=== PATIENT | male | born 1975 | race Caucasian/White ===

== ENCOUNTER 2019-05-01 15:46 | Outpatient (CLI) | payer OTHER, SELFPAY ==
--- NOTE | ~2019-05-01 | XR_ITS ---
XR finger 3rd LT min 2V DATE: 05/01/2019 16:10 INDICATION: Left third finger ganglion cyst TECHNIQUE: 4 views COMPARISON: None FINDINGS: There is focal soft tissue swelling of the mid to distal third digit medially. No subcutane ous emphysema or soft tissue calcification is detected. No fracture, dislocation, periosteal reaction or bone destruction. Anterior phalangeal joint spaces a re preserved, as is the third metacarpophalangeal joint. IMPRESSION: Focal soft tissue swelling of the medial mid to distal third digit; no significant bony a bnormality Reviewed, dictated and finalized at location B. STANT TO THE DEAN IMPRESSION: Focal soft tissue swelling of the medial mid to distal third digit; no significant bony abnormality
== END 2019-05-01 15:47 | disposition home or self-care (01) ==
LOC: CHSIMG 15:48
PROVIDERS: PCP Family Medicine; Visit Provider Family Medicine
DX: M67.442 Ganglion, left hand (principal)
CPT/HCPCS: 73140

== ENCOUNTER 2019-05-05 06:59 | Outpatient (CLI) | payer OTHER, SELFPAY ==
--- NOTE | ~2019-05-05 | MR_ITS ---
EXAMINATION: MR hand LT wo con DATE: 05/05/2019 08:46 INDICATION: Little middle finger neoplasm. TECHNIQUE: Magnetic resonance imaging (MRI) of the left hand was performed without intravenous contra st and at the third digit and excluding the carpus, thumb and portions of the mid to distal fifth dig it. Sequences included coronal T1-weighted FSE, axial, sagittal and coronal PD-weighted FSE and axial , sagittal and coronal PD-weighted FS FSE. COMPARISON: Left third digit radiograph dated 05/01/2019 FINDINGS: In the subcutaneous soft tissues along the ulnar side of the third middle phalanx there is a 14 x 10 x 6 mm relatively homogeneous PD hyperintense, T1 isointense lesion. This exerts mass effect upon the neurovascular bundle which is displaced palmarly. Bones are normal alignment with normal marrow sign al throughout. No reactive edema, fracture or pathologic marrow replacing process. No evident periost itis. The flexor and extensor tendons are normal with no evident tenosynovitis. The collateral ligame nt complex at the interphalangeal and metacarpophalangeal joints are normal. IMPRESSION: 1. 14 x 10 x 6 mm PD hyperintensities lesion along the ulnar side of the third middle phalanx. This m ost likely represents a ganglion cyst although in the absence of intravenous contrast as solid neopla sm could not be excluded. If solid, the signal characteristics would be most consistent with a schwan noma or peripheral nerve sheath tumor. Could consider either ultrasound or postcontrast MRI to differ entiate solid from cystic. Reviewed, dictated and finalized at location A. NIZER IMPRESSION: 1. 14 x 10 x 6 mm PD hyperintensities lesion along the ulnar side of the third middle phalanx. This most likely represents a ganglion cyst although in the abs ence of intravenous contrast as solid neoplasm could not be excluded. If solid, the signal characteristics would be most consistent with a schwannoma or perip heral nerve sheath tumor. Could consider either ultrasound or postcontrast MRI to differentiate solid from cystic.
== END 2019-05-05 07:00 | disposition home or self-care (01) ==
LOC: CHSIMG 07:02
PROVIDERS: PCP Family Medicine
DX: D49.2 Neoplasm of unspecified behavior of bone, soft tissue, and skin (principal)
CPT/HCPCS: 73218

== ENCOUNTER 2019-08-03 11:30 | Outpatient (CLI) | payer OTHER, SELFPAY ==
[2019-08-03 11:49] LABS: Basophils Absolute Auto 0.02 K/mm3 (0.00-0.10); Basophils Percent Auto 0.2 % (0.0-1.0); Eosinophils Absolute Auto 0.08 K/mm3 (0.02-0.50); Eosinophils Percent Auto 0.9 % (1.0-6.0); Hematocrit 45.7 % (40.0-54.0); Hemoglobin 15.3 g/dL (14.0-18.0); Immature Granulocyte Absolute 0.03 K/mm3 (0.00-0.00); Immature Granulocyte Percent A 0.3 % (0.0-0.0); Lymphocytes Absolute Auto 1.72 K/mm3 (1.10-4.50); Lymphocytes Percent Auto 18.6 % (18.0-42.0); Mean Corpuscular HGB Conc 33.5 g/dL (32.0-36.0); Mean Corpuscular Hemoglobin 29.4 pg (27.0-31.0); Mean Corpuscular Volume 87.9 fL (78.0-102.0); Mean Platelet Volume 9.5 fl (8.7-11.0); Monocytes Absolute Auto 0.68 K/mm3 (0.10-0.90); Monocytes Percent Auto 7.3 % (2.0-11.0); Neutrophils Absolute Auto 6.7 K/mm3 (1.7-7.2); Neutrophils Percent Auto 72.7 % (50.0-70.0); Platelet Count Result 344 K/mm3 (150-420); Red Cell Distribution Width 13.9 % (11.6-14.4); White Blood Count 9.3 K/mm3 (4.8-10.8)
[2019-08-03 11:51] LABS: Add Urine Microscopic? YES; Appearance Urine Clear (Clear); Bilirubin Urine Negative (Negative); Blood Urine 1+ (Negative); Color Urine Yellow (Yellow); Glucose Urine UA Negative (Negative); Ketones Urine Negative (Negative); Leukocyte Esterase Ur Negative (Negative); Nitrate Urine Negative (Negative); Protein Urine Negative (Negative); Specific Grav Ur 1.025 (1.010-1.020); Urobilinogen Urine 0.2 mg/dL (0.2-1.0)
[2019-08-03 11:59] LABS: Bacteria Urine 1+ /hpf; Squamous Epithelial Cell Urine None seen /hpf (Few); WBC Urine 0-3 /hpf (0-3)
[2019-08-03 12:03] LABS: Alanine Aminotransferase 39 U/L (16-63); Albumin Level 3.7 g/dL (3.4-5.0); Alkaline Phosphatase 81 U/L (46-116); Anion Gap 12.5 mmol/L (7-16); Aspartate Amino Transferase 17 U/L (15-37); Bilirubin,Total 0.3 mg/dL (0.00-1.00); Blood Urea Nitrogen 15 mg/dL (7-18); Calcium 9.3 mg/dL (8.5-10.1); Carbon Dioxide 30 mmol/L (21-32); Chloride 103 mmol/L (98-108); Estimated Glomerular Filt Rate > 60; Glucose 90 mg/dL (70-99); Osmolality Calculated 292 mOsm/kg (285-295); Potassium 4.5 mmol/L (3.5-5.1); Sodium 141 mmol/L (136-145); Total Protein 7.6 g/dL (6.4-8.2)
== END 2019-08-03 11:31 | disposition home or self-care (01) ==
PROVIDERS: PCP Family Medicine
DX: R53.83 Other fatigue (principal)
CPT/HCPCS: 36415; 80053; 81001; 85025

== ENCOUNTER 2019-11-02 11:13 | Outpatient (CLI) | payer OTHER, SELFPAY ==
[2019-11-02 11:24] LABS: Basophils Absolute Auto 0.02 K/mm3 (0.00-0.10); Basophils Percent Auto 0.3 % (0.0-1.0); Eosinophils Absolute Auto 0.13 K/mm3 (0.02-0.50); Eosinophils Percent Auto 1.7 % (1.0-6.0); Hematocrit 46.7 % (40.0-54.0); Hemoglobin 15.8 g/dL (14.0-18.0); Immature Granulocyte Absolute 0.03 K/mm3 (0.00-0.00); Immature Granulocyte Percent A 0.4 % (0.0-0.0); Lymphocytes Absolute Auto 1.51 K/mm3 (1.10-4.50); Lymphocytes Percent Auto 19.7 % (18.0-42.0); Mean Corpuscular HGB Conc 33.8 g/dL (32.0-36.0); Mean Corpuscular Hemoglobin 29.8 pg (27.0-31.0); Mean Corpuscular Volume 87.9 fL (78.0-102.0); Mean Platelet Volume 9.6 fl (8.7-11.0); Monocytes Absolute Auto 0.61 K/mm3 (0.10-0.90); Neutrophils Absolute Auto 5.4 K/mm3 (1.7-7.2); Neutrophils Percent Auto 69.9 % (50.0-70.0); Platelet Count Result 326 K/mm3 (150-420); Red Blood Count 5.31 M/mm3 (4.70-6.10); Red Cell Distribution Width 13.2 % (11.6-14.4); White Blood Count 7.7 K/mm3 (4.8-10.8)
== END 2019-11-02 11:14 | disposition home or self-care (01) ==
PROVIDERS: PCP Family Medicine
DX: K62.5 Hemorrhage of anus and rectum (principal)
CPT/HCPCS: 36415; 85025

== ENCOUNTER 2020-08-03 16:09 | Emergency (ER) | payer SELFPAY ==
--- NOTE | ~2020-08-03 | XR_ITS ---
EXAMINATION: XR ankle LT min 3V DATE: 08/03/2020 16:55 INDICATION: Left ankle injury and pain. TECHNIQUE: 4 views of left ankle were obtained. COMPARISON: None. FINDINGS: Bone alignment is normal. No acute fracture. There is mild ankle joint osteoarthritis. Ther e is heterotopic ossification distal to medial malleolus, likely from old injury. There is an entheso phyte at posterior aspect of calcaneal tuberosity. Ankle soft tissue swelling is noted. IMPRESSION: 1. No acute fracture. 2. Mild ankle joint osteoarthritis. Reviewed, dictated and finalized at location A.
[2020-08-03 16:17] VITALS: BP 142/99; PULSE 98; RESP 20; TEMP 36.4; O2SAT 98
[2020-08-03] MEDS: KETOROLAC (*BKC) 60 MG/2 ML VIAL IM (16:56)
--- NOTE | 2020-08-03 17:01 | ED.LOWEXIN ---
HPI - Extremity Injury (Lower) General Source: patient and family Mode of arrival: ambulatory Limitations: no limitations History of Present Illness HPI Narrative: Will comes in after stepping in a hole last evening about 8:30 pm. He had sharp, moderately severe pain in his left ankle with this, ongoing, and has continued to have pain in his ankle which has gotten more severe with time and swelling. Pain is mostly in left lateral ankle, made worse with movement, less severe with rest. He has swelling now on both sides of his ankle that is moderately severe. Ankle appears quite bruised on both sides. MD complaint: ankle injury Onset (ago): hour(s) (since last pm) Type of Injury: blunt Place: home Severity: severe Relieving factors: nothing and other (nsaid has not helped much at home) Exacerbating factors: weight bearing and movement Context: other (stepped in hole) Associated symptoms: able to partially bear weight and ambulatory Treatments prior to arrival: cold therapy and NSAIDS Related Data Home Medications Medication Instructions Recorded Confirmed clopidogrel [Plavix] 75 mg PO DAILY 03/08/19 08/03/20 lisinopril 20 mg PO DAILY 03/08/19 08/03/20 zolpidem 10 mg PO HS PRN 03/08/19 08/03/20 Allergies Allergy/AdvReac Type Severity Reaction Status Date / Time codeine Allergy Unknown Verified 03/08/19 21:29 Review of Systems Constitutional: Constitutional: Reports no additional constitutional complaints Eyes: Eyes: Reports no additional eye complaints ENT: Reports system reviewed and no additional complaints, except as documented Cardiovascular: Cardiovascular: Reports no additional cardiovascular complaints Respiratory: Respiratory: Reports no additional respiratory complaints Gastrointestinal: Gastrointestinal: Reports no additional gastrointestinal complaints Genitourinary: Genitourinary: Reports no additional male genitourinary complaints Musculoskeletal: Musculoskeletal: Reports no additional musculoskeletal complaints Integumentary/Breasts: Skin/Breast: Reports system reviewed and no additional complaints, except as docu Neurologic: Reports system reviewed and no additional complaints, except as documented Psychiatric: Psychiatric: Reports no additional psychiatric complaints Endocrine: Endocrine: Reports no additional endocrine complaints Hematologic/Lymphatic: Hematologic/Lymphatic: Reports no additional hematologic/lymphatic complaints Allergic/Immunologic: Allergic/Immunologic: Reports no additional allergic/immunologic complaints [facility] Past Medical History Medical History (Updated 08/03/20 @ 23:06 by Dani Trivedi MD) CAD (coronary artery disease) Hypertension Surgical History Surgical History H/O hernia repair History of appendectomy History of carpal tunnel surgery Stented coronary artery Social History Social History Smoking status: Current every day smoker Tobacco type: cigarettes Alcohol intake: never Substance use: current Living arrangements: with family Gender identity (if verbalized by the patient): Male Exam Const: General: no acute distress Orientation/consciousness: patient oriented x3 HENMT: Head: normal to inspection Ears: external ears normal General nose exam: Normal external nose present Mouth: Yes Normal oral and palatal mucosa present Eyes: Conjunctivae: conjunctivae normal Neck: Neck: normal visual inspection Chest: Chest palpation & inspection: normal inspection of the chest Resp: Effort & Inspection: normal respiratory effort Auscultation: clear to auscultation bilaterally Cardio: Rate: regular rate Rhythm: regular rhythm GI: GI Palp: Yes Soft to palpation Auscultation: normal bowel sounds Skin: General skin exam: normal color Neuro: General: patient oriented x3 and moves all extremities Extrem: Other: left ankle
[2020-08-03 17:08] LABS: Glucose Point of Care 83 (65-105)
[2020-08-03] MEDS: traMADol HCL (*CRX) 50 MG TABLET PO (17:14)
== END 2020-08-03 17:16 | disposition home or self-care (01) ==
PROVIDERS: Emergency Provider Emergency Medicine; PCP Family Medicine
DX: S93.402A Sprain of unspecified ligament of left ankle, initial encounter (principal)
CPT/HCPCS: 29515; 73610; 82948; 96372; 99283; A9270; J1885; L4350

== ENCOUNTER 2022-08-29 07:42 | Emergency (ER) | payer OTHER, SELFPAY ==
[2022-08-29] VITALS (45 sets, daily range): BP systolic 135–160; BP diastolic 80–112; PULSE 68–111; RESP 11–21; TEMP 36.4–37.1; O2SAT 91–98
--- NOTE | ~2022-08-29 | CT_ITS ---
EXAMINATION: CT brain wo con DATE: 08/29/2022 08:16 INDICATION: Left arm and face numbness. Headache TECHNIQUE: Computed tomography (CT) of the head was performed without intravenous contrast. The mA wa s adjusted according to patient size. Iterative reconstruction technique was employed. Exam dose: 68 1.00 mGy-cm total exam DLP. COMPARISON: None FINDINGS: No intracranial mass lesion or hemorrhage or cerebrovascular accident is detected. No midli ne shift or mass effect effect. Normal ventricular size. Normal he-white matter differentiation. No subdural or epidural hematoma. There is patchy soft tissue thickening the ethmoid air cells bilaterally. The paranasal sinuses and m astoid air cells are otherwise normally developed and aerated. No fracture or bone destruction of the cranial vault. IMPRESSION: No intracranial abnormality Dr. David telephoned the report to the emergency room physician in [place] on 08/2022 at 0822 hours. Reviewed, dictated and finalized at Location A. Reviewed, dictated and finalized at location A. IMPRESSION: No intracranial abnormality Dr. David telephoned the report to the emergency room physician in [place] on at 0822 hours.
--- NOTE | 2022-08-29 07:47 | ED.GENADULT ---
HPI - General Adult General Chief complaint: Dizziness Stated complaint: left sided numbness Time Seen by Provider: 08/29/22 07:47 Source: patient and family Mode of arrival: ambulatory Limitations: no limitations History of Present Illness HPI narrative: 47-year-old white male this morning while watching TV at 7:15 a.m. suddenly had a left facial tingling numbness tingling of his this tongue left arm with left arm weakness and tingling around his left chest. Denies any problems walking but his said he staggered into her room and said he was having a stroke he thought. Denied any other problems with his vision slurred speech or problems with numbness or weakness of his legs or right side of his body. patient's stated that he sneezed 2 nights ago and had sudden frontal headache took some Tylenol and the headache has been severe yesterday and Tuesday night 2 nights ago he said he drank a pt and half of whiskey the said he he drank half a pt yesterday to try get rid of the headache. Has headaches just mild frontal. Tylenol for this today denies any problems eating or drinking voiding or stooling rash or itching bleeding or bruising swelling lumps or bumps lightheadedness. said he was dizzy walking into the ER today. His mild headache no pain anywhere else no cough shortness of breath runny nose sore throat. Past medical history he had a HI with 2 stents 3 years ago is on short-term disability since has posttraumatic stress disorder has been off his clopidogrel baby aspirin lisinopril but continues to take Focalin and trazodone from his psychiatrist. 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 Related Data Home Medications Medication Instructions Recorded Confirmed dexmethylphenidate 10 mg tablet 10 mg PO BID 08/29/22 08/29/22 trazodone 100 mg tablet 100 mg PO QHS 08/29/22 08/29/22 Allergies Allergy/AdvReac Type Severity Reaction Status Date / Time codeine Allergy Unknown Verified 08/29/22 08:03 Review of Systems Review of Systems: All systems reviewed & are unremarkable except as noted in HPI and below PMFSH Past Medical History Medical History CAD (coronary artery disease) Hypertension Surgical History Surgical History H/O hernia repair History of appendectomy History of carpal tunnel surgery Stented coronary artery Social History Social History Smoking status: Current every day smoker Tobacco type: cigarettes Alcohol intake: never Substance use: current Living arrangements: with family Gender identity (if verbalized by the patient): Male Exam Narrative: Patient is a white male? and appears in no apparent distress. ? Head is normocephalic atraumatic. ? Eyes:? Pupils are equal round react light extraocular movements are intact. Peripheral vision is normal ? Ears:? TMs are normal .? Ear canals are normal.? Hearing is grossly normal. ? Nose:? Normal. ? Throat:? Oropharynx is clear with moist mucous membranes.? Posterior pharynx is clear with no exudates. speech is normal ? Neck:? Supple no lymphadenopathy.? Full range of motion? without tenderness. no meningismus. Supple ??Lungs:? Clear to auscultation without wheezes rales or rhonchi . Thorax:? Chest wall nontender without crepitation. ? Heart:? Regular rate and rhythm without murmurs gallops or rubs. ? Back:? Nontender. ? Abdomen:? Positive bowel sounds, soft, nontender, no hepatosplenomegaly or masses, no CVA tenderness, no abdominal bruits, no guarding or rebound. ? Extremities:? Full range of motion nontender .?? No cyanosis clubbing or edema. ?Neuro:? alert and oriented x4.? Motor: Left arm mild weakness. Left arm drift.? Sensory: Left facial numbness and left upper extremity numbness. Speech is normal.? Affect normal.? Cranial nerves
--- NOTE | 2022-08-29 07:50 | ECG_ITS ---
Measurements Intervals [place] Rate: 90 P: 21 TX: 134 QRS: 30 QRSD: 89 T: -15 QT: 355 QTc: 436 Interpretive Statements SINUS RHYTHM NONSPECIFIC T-WAVE ABNORMALITY ABNORMAL ECG NO PREVIOUS ECG AVAILABLE FOR COMPARISON Electronically Signed On 08-30-2022 9:28:43 CDT by Abrahan Schulz M.D.
[2022-08-29 07:51] LABS: Glucose Point of Care 150 mg/dl (65-105)
[2022-08-29 08:23] LABS: Hematocrit 47.6 % (40.0-54.0); Hemoglobin 16.6 g/dL (14.0-18.0); Mean Corpuscular HGB Conc 34.9 g/dL (32.0-36.0); Mean Corpuscular Hemoglobin 30.1 pg (27.0-31.0); Mean Corpuscular Volume 86.2 fL (78.0-102.0); Mean Platelet Volume 9.6 fl (8.7-11.0); Platelet Count Result 324 K/mm3 (150-420); Red Blood Count 5.52 M/mm3 (4.70-6.10); Red Cell Distribution Width 13.2 % (11.6-14.4); White Blood Count 14.1 K/mm3 (4.8-10.8)
[2022-08-29 08:38] LABS: INR 0.9; Partial Thromboplastin Time 24.6 SEC (23.90-30.70); Prothrombin Time 10.3 Seconds (9.50-12.10)
[2022-08-29 08:39] LABS: Alanine Aminotransferase 56 U/L (16-63); Albumin Level 3.7 g/dL (3.4-5.0); Alkaline Phosphatase 88 U/L (46-116); Anion Gap 11 mmol/L (8-16); Aspartate Amino Transferase 27 U/L (15-37); Bilirubin,Total 0.4 mg/dL (0.00-1.00); Blood Urea Nitrogen 14 mg/dL (7-18); Calcium 8.6 mg/dL (8.5-10.1); Carbon Dioxide 25 mmol/L (21-32); Chloride 99 mmol/L (98-108); Estimated CRCL calculation 90 ml/min; Estimated Glomerular Filt Rate > 60; Glucose 108 mg/dL (70-99); Magnesium 2.1 mg/dL (1.8-2.4); Osmolality Calculated 281 mOsm/kg (285-295); Potassium 3.5 mmol/L (3.5-5.1); Sodium 135 mmol/L (136-145); Total Protein 7.5 g/dL (6.4-8.2); Troponin I 9.7 ng/L (0.00-60.4)
--- NOTE | 2022-08-29 08:45 | PC.NURSE ---
0743 - pt arrived 0747 - bedside glucose 150 0755 - erp at bedside 0800 - stat stroke paged overhead 0805 - pt taken to ct scanner 0820 - erp speaking with radiology 0825 - erp speaking with neuro at [facility]
[2022-08-29 10:43] LABS: Amphetamine Screen Urine Negative (Negative); Barbiturate Screen Urine Negative (Negative); Benzodiazepines Screen Urine Negative (Negative); Cannabinoid Screen Urine Negative (Negative); Cocaine Screen Urine Negative (Negative); Methadone Screen Urine Negative (Negative); Opiate Screen Urine Negative (Negative); Phencyclidine Screen Urine Negative (Negative)
== END 2022-08-29 18:34 | disposition short-term general hospital (02) ==
PROVIDERS: Emergency Provider Emergency Medicine; PCP Family Medicine
DX: G45.9 Transient cerebral ischemic attack, unspecified (principal); I25.10 Atherosclerotic heart disease of native coronary artery without angina pectoris; I10 Essential (primary) hypertension; F17.210 Nicotine dependence, cigarettes, uncomplicated; Z79.899 Other long term (current) drug therapy
CPT/HCPCS: 36415; 70450; 80053; 80307; 82948; 83735; 84484; 85027; 85610; 85730; 93005; 99285

== ENCOUNTER 2023-04-02 00:12 | Emergency (ER) | payer SELFPAY ==
[2023-04-02] VITALS (39 sets, daily range): BP systolic 146–204; BP diastolic 104–139; PULSE 81–109; RESP 12–20; TEMP 37.1; O2SAT 92–98
--- NOTE | ~2023-04-02 | CT_ITS ---
EXAMINATION: CT brain wo con DATE: 04/02/2023 00:44 INDICATION: Left arm paresis. Headache. History of stroke. TECHNIQUE: Computed tomography (CT) of the head was performed without intravenous contrast. The mA wa s adjusted according to patient size. Iterative reconstruction technique was employed. Exam dose: 60 5.33 mGy-cm total exam DLP. COMPARISON: August 29, 2022 CT brain FINDINGS: No intracranial mass lesion or hemorrhage or cerebrovascular accident, midline shift or mas s effect is evident. Normal ventricular size. Normal he-white matter differentiation. No subdural o r epidural hematoma. The orbits are unremarkable. There is mild bilateral posterior ethmoid soft tissue opacification, right greater than left. The par anasal sinuses and mastoid air cells are otherwise normally developed and aerated. No fracture or bone destruction of the cranial vault. IMPRESSION: No significant intracranial abnormality Reviewed, dictated and finalized at Location A. Reviewed, dictated and finalized at location A. EAR PLANT INSTRUMENT TECHNICIAN
--- NOTE | ~2023-04-02 | XR_ITS ---
XR chest 2V DATE: 04/02/2023 00:43 INDICATION: Chest pain TECHNIQUE: PA and lateral views COMPARISON: None FINDINGS: Normal heart size. No hilar or mediastinal enlargement. No pulmonary infiltrate or consolid ation, pleural effusion or pulmonary vascular congestion or pneumothorax is detected. Surgical clips, upper abdomen, likely due to cholecystectomy. Included skeletal structures are unrema rkable. IMPRESSION: No active cardiopulmonary disease Reviewed, dictated and finalized at location A. CLEANER OPERATOR
--- NOTE | 2023-04-02 00:13 | ED.GENADULT ---
HPI - General Adult General Chief complaint: Chest Pain Stated complaint: high blood pressure Time Seen by Provider: 04/02/23 00:13 Source: patient Mode of arrival: ambulatory Limitations: no limitations History of Present Illness HPI narrative: patient is a 47-year-old male with hypertension and noncompliance with medication. He had a stroke in August of 2022. He has no residual side effects. They found 3 strokes in his brain on MRI. Chest pain resolved at this time. He also had some uneasy feeling and some scalp burning and some left leg burning. He checked his blood pressure in the values were over 200s on the top and over 100s at the bottom. On evaluation here he was 204/128. patient stopped taking all of his medications due to finances. Onset (ago): hour(s) ( 2-3 hours) Location: head, chest and lower extremity Radiation: non-radiation Severity: mild Severity scale (1-10): 3 Quality: burning Pain Consistency: intermittent Relieving factors: none Exacerbating factors: none Associated symptoms: chest pain and headaches Treatments prior to arrival: none Related Data Home Medications Medication Instructions Recorded Confirmed dexmethylphenidate 10 mg tablet 10 mg PO BID 08/29/22 04/02/23 trazodone 100 mg tablet 100 mg PO QHS 08/29/22 04/02/23 Adult Aspirin 324 mg PO DAILY 04/02/23 04/02/23 atorvastatin 40 mg tablet 40 mg PO DAILY 04/02/23 04/02/23 lisinopril 10 mg tablet 10 mg PO DAILY 04/02/23 04/02/23 Allergies Allergy/AdvReac Type Severity Reaction Status Date / Time codeine Allergy Mild Itching Verified 04/02/23 00:17 [facility] Past Medical History Medical History CAD (coronary artery disease) Hypertension Surgical History Surgical History H/O hernia repair History of appendectomy History of carpal tunnel surgery Stented coronary artery Social History Social History Smoking status: Current every day smoker Tobacco type: cigarettes Alcohol intake: never Substance use: current Living arrangements: with family Gender identity (if verbalized by the patient): Male Course Vital Signs Vital signs: Vital Signs Temperature 37.1 C 04/02/23 00:12 Pulse Rate 108 H 04/02/23 00:12 Respiratory Rate 12 04/02/23 00:12 Blood Pressure 204/128 H 04/02/23 00:12 Pulse Oximetry 97 04/02/23 00:12 Oxygen Delivery Room Air 04/02/23 00:12 Temperature 37.1 C 04/02/23 00:12 Pulse Rate 86 04/02/23 01:46 Respiratory Rate 14 04/02/23 01:46 Blood Pressure 164/125 H 04/02/23 02:27 Pulse Oximetry 98 04/02/23 01:46 Oxygen Delivery Room Air 04/02/23 00:12 Medical Decision Making MDM Narrative Medical decision making narrative: Patient is a 47-year-old male with hypertensive urgency presenting to the emergency room. He was given labetalol on entry to the hospital and he started to feel better. He slowly feeling better is the pressure is decreasing slowly. CT scan of the brain was negative for acute changes. EKG was normal sinus rhythm. We will do a cardiac/ neuro workup at this time. As long as all of his symptoms are resolved after blood pressure is decreased, he will be allowed to go home this evening. He will need to be restarted on his blood pressure medication. Hematuria follow-up with the primary doctor. Vital Signs Vital Signs: Vital Signs Temperature 37.1 C 04/02/23 00:12 Pulse Rate 108 H 04/02/23 00:12 Respiratory Rate 12 04/02/23 00:12 Blood Pressure 204/128 H 04/02/23 00:12 Pulse Oximetry 97 04/02/23 00:12 Oxygen Delivery Room Air 04/02/23 00:12 Temperature 37.1 C 04/02/23 00:12 Pulse Rate 86 04/02/23 01:46 Respiratory Rate 14 04/02/23 01:46 Blood Pressure 164/125 H 04/02/23 02:27 Pulse Oximetry 98 04/02/23 01:46 Oxygen Delivery Room Air
--- NOTE | 2023-04-02 00:15 | ECG_ITS ---
Measurements Intervals [place] Rate: 91 P: 16 MS: 146 QRS: 27 QRSD: 89 T: -12 QT: 340 QTc: 420 Interpretive Statements SINUS RHYTHM MINIMAL Q WAVES- INFERIOR LEADS T WAVE ABNORMALITY IN INFERIOR LEADS- CONSIDER ISCHEMIA ABNORMAL ECG COMPARED TO ECG 08/29/2022 07:57:05 T WAVE ABNORMALITY NOW PRESENT Electronically Signed On 04-02-2023 8:52:40 PERMASTONE APPLICATOR by Wale Rodriguez D.O.
[2023-04-02] MEDS: LABETALOL HCL INJ 100 MG/20 ML VIAL 10 MG IV PUSH ×2 (00:25→00:53)
[2023-04-02 00:35] LABS: Basophils Absolute Auto 0.04 K/mm3 (0.00-0.10); Basophils Percent Auto 0.4 % (0.0-1.0); Eosinophils Absolute Auto 0.09 K/mm3 (0.02-0.50); Eosinophils Percent Auto 0.9 % (1.0-6.0); Hematocrit 48.4 % (40.0-54.0); Hemoglobin 16.6 g/dL (14.0-18.0); Lymphocytes Absolute Auto 2.31 K/mm3 (1.10-4.50); Lymphocytes Percent Auto 23.9 % (18.0-42.0); Mean Corpuscular HGB Conc 34.3 g/dL (32.0-36.0); Mean Corpuscular Volume 87.4 fL (78.0-102.0); Mean Platelet Volume 9.6 fl (8.7-11.0); Monocytes Percent Auto 10.4 % (2.0-11.0); Neutrophils Absolute Auto 6.1 K/mm3 (1.7-7.2); Neutrophils Percent Auto 63.4 % (50.0-70.0); Platelet Count Result 317 K/mm3 (150-420); Red Blood Count 5.54 M/mm3 (4.70-6.10); Red Cell Distribution Width 12.9 % (11.6-14.4); White Blood Count 9.7 K/mm3 (4.8-10.8)
[2023-04-02 00:43] LABS: D Dimer 0.19 mg/L (0.19-0.50); INR 0.9; Partial Thromboplastin Time 27.9 SEC (23.90-30.70); Prothrombin Time 10.3 Seconds (9.50-12.10)
[2023-04-02 00:45] LABS: Alanine Aminotransferase 205 U/L (16-63); Albumin Level 3.9 g/dL (3.4-5.0); Alkaline Phosphatase 97 U/L (46-116); Anion Gap 12 mmol/L (8-16); Aspartate Amino Transferase 73 U/L (15-37); Bilirubin,Total 0.4 mg/dL (0.00-1.00); Blood Urea Nitrogen 17 mg/dL (7-18); Calcium 9.2 mg/dL (8.5-10.1); Carbon Dioxide 26 mmol/L (21-32); Chloride 97 mmol/L (98-108); Estimated CRCL calculation 80 ml/min; Estimated Glomerular Filt Rate > 60; Glucose 106 mg/dL (70-99); Osmolality Calculated 281 mOsm/kg (285-295); Sodium 135 mmol/L (136-145); Total Protein 7.8 g/dL (6.4-8.2); Troponin I 20.6 ng/L (0.00-60.4)
[2023-04-02 01:33] LABS: Appearance Urine Clear (Clear); Bilirubin Urine Negative (Negative); Blood Urine 1+ (Negative); Color Urine Yellow (Yellow); Glucose Urine UA Negative (Negative); Ketones Urine Negative (Negative); Leukocyte Esterase Ur Negative LEU/UL (Negative); Nitrate Urine Negative (Negative); Protein Urine Negative (Negative); Specific Grav Ur >= 1.030 (1.010-1.020); Urobilinogen Urine 0.2 mg/dL (0.2-1.0)
[2023-04-02 01:39] LABS: Add Urine Microscopic? YES; Bacteria Urine Trace /hpf; Squamous Epithelial Cell Urine Rare /hpf (Few); WBC Urine 0-3 /hpf (0-3)
[2023-04-02 01:40] LABS: Mucus Urine Moderate /lpf
[2023-04-02] MEDS: amLODIPine BESYLATE 5 MG TABLET PO (02:07)
[2023-04-02] MEDS: LOSARTAN POTASSIUM 50 MG TABLET 100 MG PO (02:26)
== END 2023-04-02 03:50 | disposition home or self-care (01) ==
PROVIDERS: Emergency Provider Emergency Medicine
DX: I16.0 Hypertensive urgency (principal); I25.10 Atherosclerotic heart disease of native coronary artery without angina pectoris; F17.210 Nicotine dependence, cigarettes, uncomplicated; Z91.148 Patient's other noncompliance with medication regimen for other reason; Z86.73 Personal history of transient ischemic attack (TIA), and cerebral infarction without residual deficits; Z79.899 Other long term (current) drug therapy; Z79.82 Long term (current) use of aspirin
CPT/HCPCS: 36415; 70450; 71046; 80053; 81001; 84484; 85025; 85380; 85610; 85730; 93005; 96374; 96376; 99284; A9270

== ENCOUNTER 2024-09-27 07:12 | Emergency (ER) | payer BC, SELFPAY ==
[2024-09-27] VITALS (34 sets, daily range): BP systolic 108–150; BP diastolic 76–108; PULSE 73–91; RESP 10–24; TEMP 36.4–36.6; O2SAT 91–99
--- NOTE | 2024-09-27 | CONSULT_PTH ---
PATIENT: Will Arriaga LOC: [facility] U#:[id number] AGE/SX: 49/M ROOM: RE09/27/[address]: George Rios MD : 1975 BED: DIS: 09/27/2024 SPEC #: [id number] RECD: 09/27/24 08:32 STATUS: [place] REQ #: [id number] VALENCIA: 09/27/24 00:[address]: George Rios DEPT: [facility] Consult RECD BY: Sparkle Magallon MLT, ([facility] ENTERED: 09/27/24 08:32 SP TYPE: Consult OTHR DR: Louis Hughes MD Tissues: A - Peripheral Smear Procedures: Hematology Consult
--- NOTE | ~2024-09-27 | CT_ITS ---
Non-contrast Head CT History: Left-sided numbness COMPARISON: 04/02/2023 Technique: Axial non-contrast imaging of the brain was performed. Dose reduction technique was used on this scan by utilizing automated exposure control and iterative reconstruction technique. The dose -length product (DLP) was 681.00 mGy-cm. Findings: There is no evidence of intracranial hemorrhage, mass lesion, or acute infarct. Brain par enchyma appears normal. The ventricles and subarachnoid spaces are normal in size. The calvarium ap pears normal. The visualized paranasal sinuses and mastoid air cells are clear. Impression: No significant abnormality seen. Reviewed, dictated and finalized at location . Impression: No significant abnormality seen.
--- NOTE | ~2024-09-27 | CT_ITS ---
EXAMINATION: CTA BRAIN/CAROTID DATE: 09/27/2024 09:25 INDICATION: Stroke with left-sided numbness TECHNIQUE: Computed tomographic angiography (CTA) of the head and neck was performed with 100 mL Omni paque-350 intravenous contrast. Multiplanar reconstructions and maximum intensity projection 3D-recon structions of the carotid arteries and of the intracranial arteries were created by the technologist on a separate workstation. Automated exposure control and iterative reconstruction technique were emp loyed.The dose-length product was 1253.02 mGy-cm. COMPARISON: Head CT dated 10/14/2024 FINDINGS: Carotid arteries: Aortic arch and the great vessels arising from the arch are normal in caliber with no dissection. Min imal atherosclerotic plaque at the origin of the innominate artery. There is small amount of atherosc lerotic plaque with 0% stenosis of the right and left carotid bulbs relative to normal distal artery lumen diameter (NASCET criteria). Right vertebral artery is dominant.Mild paraseptal emphysema at the bilateral apices. Calcified left upper lobe nodule consistent with old granulomatous disease. Mild c ervical spondylosis. Cervical soft tissues are unremarkable. Intracranial arteries Right vertebral artery is dominant although both vertebral arteries as well as the basilar artery are small. Bilateral A1 segments and small right P1 segment are patent. There is a patent right posterio r commuting coronary artery of similar caliber to the right P1 segment. There is also a patent left p osterior communicating artery which appears to be the sole supply of the left posterior cerebral maría ry. There is no hemodynamically significant stenosis in the vertebral, basilar and internal carotid a rteries. There are no aneurysms identified. Cerebral arterial arborization appears symmetric. No abn ormally enhancing brain lesions. IMPRESSION: 1. Small amount of atherosclerotic plaque with 0% stenosis of the right and left carotid bulbs relati ve to normal distal artery lumen diameter (NASCET criteria). 2. Normal anatomic variation to the [place]. No hemodynamically significant stenosis, thromb osis or aneurysm. Reviewed, dictated and finalized at location B. IMPRESSION: 1. Small amount of atherosclerotic plaque with 0% stenosis of the right and lef t carotid bulbs relative to normal distal artery lumen diameter (NASCET criteri a). 2. Normal anatomic variation to the [place]. No hemodynamically signif icant stenosis, thrombosis or aneurysm.
--- OUTSIDE RECORDS SUMMARY | 2024-09-27 07:20 | XMS_ITS | Continuity of Care Document ---
Author Organization [facility] Address [address] [place] [address] Phone Care Team Providers Care Territory Account Executive Name Role Phone Lzi Serrato Unavailable Unavailable Allergies, Adverse Reactions, Alerts Substance Reaction Status Criticality codeine Active No Information Medications Medication Instructions Dosage Effective Dates (start - stop) Status Comments tadalafil 20 mg tablet take 1 tablet by oral route every day 20 MG - Active simvastatin 5 mg tablet take 1 tablet by oral route every other day in the evening - Active to replace atorvastatin aspirin 325 mg tablet take 1 tablet by oral route every day 325 MG - Active buspirone 10 mg tablet take 1 tablet by oral route 2 times every day 10 MG - Active trazodone 100 mg tablet take 1 or 2 tablet by oral route every day at bedtime - Active folic acid 1 mg tablet take 1 tablet by oral route every day 1 MG - Active duloxetine 60 mg capsule,delayed release take 1 capsule by oral route every day 60 MG - Active nicotine 14 mg/24 hr daily transdermal patch apply 1 patch by transdermal route every day 14 MG - Active Procedures Procedure Date OFFICE/OUTPATIENT VISIT, [facility] Advance Directives Directive Yes / No Effective Date File Name No Information Encounters Encounter Description Practice Location Reason(s) For Visit Diagnoses Date Provider Providers Copied on Encounter [facility], [address] [place] [address], [id number], [place] tel:[phone] [facility] No Information 4 Alfonzo Hill. [address] [place] [address], [id number], [place]. tel: [phone] OFFICE/OUTPA TIENT VISIT, [facility], [address] [place] [address], [address], [place] [phone] [facility]. Care (chief complaint) Transient cerebral ischemic attack, unspecifiedAtherosc lerotic heart disease of [place] coronary artery without angina pectorisHyperlipide linda, unspecifiedEssentia l (primary) hypertensionNicotin e dependence, unspecified, uncomplicated Beatriz Vazquez. [address] [place] [address], [address], [place]. tel: [phone] Family History Family Member Type Diagnosis Age At Onset Mother Problem cancer Father Problem heart Attack Mother Problem Diabetes mellitus Father Problem Hypertension Mother Problem cholesterol Father Problem Hearing loss Paternal grandfather Problem Heart Attack Father Problem Alcoholism Father Problem cholesterol Payers Payer name Insurance type Covered democrat ID Authoriza tigio(s) No Information Social History Type Description Quantity Date Captured Comments Sex Male Smoking Status No Information Chief Complaint And Reason For Visit No Information Reason For Referral Reason For Referral No Information History Of Present Illness Encounter Date Complaint History Of Prese nt Illness Est. Care Patient is here to get established as a new patient. I have seen this patient in the past. His primary concern today is he suffered a TIA about 2 weeks ago. He was in [facility] and was discharged on August 30.Past medical history was reviewed with patient. His is also present today. He had an acute [place] and had 4 cardiac stents placed in 2019. 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 He has been on disability from work since this occurred. He has continued to smoke 2 packs/day up until 2 weeks ago.2 weeks ago patient had the sudden onset of left facial numbness and left arm weakness. He says the left leg was not involved at all. He went to start in the hospital and was then transferred to [facility] where he was diagnosed with a TIA. He said pretty much all the symptoms resolved within about 5 hours. He denies any residual symptoms at this time. He was told he had some plaque in his carotid artery but no surgical intervention was planned. He was sent home on lisinopril 10 mg for hypertension. He was also started on Lipitor 40 mg once a day as well as 325 mg aspirin once a day. He was also started on nicotine patches and he was wearing 2 of the 14 mg patches every day. He says since has been home he has had a lot of trouble with what he thinks are side effects from the medication. Primarily he has had excessive nausea and vomiting as well as muscle aches and cramps. He states he has significant hip pain when he tries to lay in bed at night. He is also noted some tingling in both of his feet mainly at night. He has stopped the lisinopril because his blood pressure was running low. And he stopped the Lipitor a couple of days ago. Since then his symptoms have seemed to improve. He also has stopped doing the nicotine patches a couple days ago because he ran out. Patient had been on ADD medication but he has stopped that since the TIA.It seems patient has a history of PTSD as well as ADD and he sees Dr. Paredes in [place] for this.Other than the above symptoms he has no other complaints today. He denies any unusual chest pain or shortness of breath. He just does feel tired since he has been in the hospital 2 weeks ago. His primary pharmacy is [facility]. He is wearing a heart monitor that he is supposed to mail back to [place] at some point. He states he has no follow-ups appointment scheduled with anyone in [place]. He says they just told him to follow-up with me.I do have some records from [facility]. When he was in the hospital his cholesterol was shown to have an LDL of 91 with a total cholesterol of 187. HDL was 61 and triglycerides are 173. His CBC was unremarkable. His CMP was unremarkable. Per the notes he did not receive any thrombolytics while he was in the hospital. By the discharge summary I have it she says that the intracranial CT angiogram showed no significant vascular abnormality. The carotid CT angiogram showed no significant vascular abnormality. MRI of the brain showed a small acute nonhemorrhagic infarction in the right frontal and parietal lobes. He had an echocardiogram done but it had not been read yet when he was discharged. Functional Status Date Functional Assessmen t No Information Instructions Date Instruction Additional Infor scarlet Patient to mail back heart monitor once the time is completed.We will try to obtain records from where he was admitted for the TIAContinue aspirin 325 mg once a dayAdvised patient to stay off his ADD medicationPatient advised that if any new symptoms occur he is to immediately go to an emergency room near him. Related to Transient cerebral ischemic attack, unspecified We will try to obtai n records of the last cholesterol check in [facility] for now. If all of his side effects symptoms are resolved he can restart simvastatin 5 mg every other day later next week. If he can tolerate this we will slowly try to push that dose up. If he is unable to tolerate this statin we will have to look at the possibility of some sort of an infusion anticholesterol medication but this will likely be difficult given that he has no insurance. Related to Hyperlipidemia, unspecified Hold lisinopril for now. They are to buy a blood pressure monitor today and monitor his blood pressure couple times every day along with anytime he has any unusual symptoms. They are to log this and bring it to the next appointment. They were advised to let me know if he has blood pressure readings running over 150 systolic. Related to Essential (primary) hypertension Patient to get over- the-counter nicotine patches at 21 mg and wear 1 once a day. We discussed the importance of him stop smoking given his recent TIA. Related to Nicotine dependence, unspecified, uncomplicated Assessments Type Assessment Date No Information Patient Care Teams Name Effective Dates (start - stop) Status Members No Information
--- NOTE | 2024-09-27 07:29 | ECG_ITS ---
Test Date: 2024-09-27 07:52:17 Measurements Intervals [place] Rate: 82 P: 33 CT: 145 QRS: 18 QRSD: 95 T: 17 QT: 366 QTc: 429 Interpretive Statements SINUS RHYTHM No previous ECG available for comparison Electronically Signed On 10-01-2024 22:36:46 CDT by Leslie Tuttle M.D.
--- OUTSIDE RECORDS SUMMARY | 2024-09-27 07:33 | XMS_ITS | Continuity of Care Document ---
Author Organization [facility] Address [address] [place] [address] Phone Care Team Providers Care Lease Picker Name Role Phone Liz Serrato Unavailable Unavailable Allergies, Adverse Reactions, Alerts [...] - Active Procedures Procedure Date OFFICE/OUTPATIENT VISIT, [facility] Advance Directives Directive Yes / No Effective Date File Name No Information Encounters Encounter Description Practice Location Reason(s) For Visit Diagnoses Date Provider Providers Copied on Encounter [facility], [address] [place] [address], [address], [place] tel:[phone] [facility] No Information 4 Alfonzo Hill. [address] [place] [address], [address], [place]. tel: [phone] OFFICE/OUTPA TIENT VISIT, [facility], [address] [place] [address], [address], [place] [phone] [facility] Est. Care (chief complaint) Transient cerebral ischemic attack, unspecifiedAtherosc lerotic heart disease of [place] coronary artery without angina pectorisHyperlipide linda, unspecifiedEssentia l (primary) hypertensionNicotin e dependence, unspecified, uncomplicated Beatriz Vazquez. [address] [place] [address], [address], [place]. tel: [phone] Family History Family Member Type Diagnosis Age At Onset Mother Problem cancer Father Problem heart Attack Mother Problem Diabetes mellitus Father Problem Hypertension Mother Problem cholesterol Father Problem Hearing loss Paternal grandfather Problem Heart Attack Father Problem Alcoholism Father Problem cholesterol Payers Payer name Insurance type Covered constitution party ID Authoriza tigio(s) No Information Social History [...] about 2 weeks ago. He was in [facility] and was discharged on August 30.Past medical history was reviewed with patient. His is also present today. He had an acute [place] and had 4 cardiac stents placed in 2019. 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 He has been on disability from work since this occurred. He has continued to smoke 2 packs/day up until 2 weeks ago.2 weeks ago patient had the sudden onset of left facial numbness and left arm weakness. He says the left leg was not involved at all. He went to start in the hospital and was then transferred to [facility] where he was diagnosed with a TIA. [...] ADD and he sees Dr. Paredes in [place] for this.Other than the above symptoms he has no other complaints today. He denies any unusual chest pain or shortness of breath. He just does feel tired since he has been in the hospital 2 weeks ago. His primary pharmacy is [facility]. He is wearing a heart monitor that he is supposed to mail back to [place] at some point. He states he has no follow-ups appointment scheduled with anyone in [place]. He says they just told him to [...] completed.We will try to obtain records from [facility] where he was admitted for the TIAContinue aspirin 325 mg once a dayAdvised patient to stay off his ADD medicationPatient advised that if any new symptoms occur he is to immediately go to an emergency room near him. Related to Transient cerebral ischemic attack, unspecified We will try to obtai n records of the last cholesterol check in [facility] for now. If all of his side [...]
[2024-09-27 07:39] LABS: Hematocrit 39.3 % (40.0-54.0); Hemoglobin 13.2 g/dL (14.0-18.0); Mean Corpuscular HGB Conc 33.6 g/dL (32-36); Mean Corpuscular Hemoglobin 30.8 pg (27.0-31.0); Mean Corpuscular Volume 91.6 fL (78.0-102.0); Platelet Count Result 213 K/mm3 (150-420); Red Blood Count 4.29 M/mm3 (4.70-6.10); White Blood Count 5.7 K/mm3 (4.8-10.8)
[2024-09-27 07:50] LABS: Band Neutrophils Percent 0 % (0-6); Eosinophils Absolute Manual 0.11 K/mm3 (0.02-0.50); Eosinophils Percent Manual 2 % (1-6); Lymphocytes Absolute Manual 0.91 K/mm3 (1.1-4.5); Lymphocytes Percent Manual 16 % (18-44); Monocytes Absolute Manual 1.02 K/mm3 (0.1-0.90); Monocytes Percent Manual 18 % (3-9); Neutrophils Absolute Manual 3.64 K/mm3 (1.3-6.7); Neutrophils Percent Manual 64 % (46-73); Total Cells Counted 100
[2024-09-27 07:53] LABS: INR 0.9; Partial Thromboplastin Time 25.4 Sec (23.9-30.70); Prothrombin Time 9.9 Seconds (9.50-12.1)
[2024-09-27 08:06] LABS: Anion Gap 5 mmol/L (4-12); Blood Urea Nitrogen 12 mg/dL (9-20); Carbon Dioxide 27 mmol/L (22-30); Chloride 104 mmol/L (98-107); Estimated CRCL calculation 91 ml/min; Estimated Glomerular Filt Rate > 60; Glucose 118 mg/dL (65-110); Osmolality Calculated 282 mOsm/kg (285-295); Potassium 3.8 mmol/L (3.4-5.0); Sodium 136 mmol/L (137-145)
[2024-09-27 08:07] LABS: Alanine Aminotransferase 298 U/L (6-50); Albumin Level 3.7 g/dL (3.5-5.1); Alkaline Phosphatase 81 U/L (38-126); Aspartate Amino Transferase 269 U/L (17-59); Bilirubin,Total 0.4 mg/dL (0.2-1.3); Calcium 8.7 mg/dL (8.4-10.2); Total Protein 6.5 g/dL (6.3-8.2); Troponin I < 0.012 ng/mL (0.000-0.034)
[2024-09-27] MEDS: TENECTEPLASE 50 MG/10 ML VIAL 22.6 MG IV PUSH (08:09)
--- NOTE | 2024-09-27 08:09 | ED_ITS ---
HPI - General Adult General Chief complaint: Unspecified Stated complaint: facial numbness Time Seen by Provider: 09/27/24 07:21 Source: patient Limitations: no limitations History of Present Illness HPI narrative: this is a 49-year-old male with a history of previous strokes, hyperlipidemia, hypertension positive smoking history presents after he woke up this morning and started developing facial numbness with a mild left facial droop and left arm weakness and left leg weakness. Patient said he went to bed normal neurologically, woke up in the morning and around 6:00 a.m. started to have symptoms. Patient with history of previous strokes and smoking history, patient states that he has not had insurance and has not been taking any anticoagulation and has not been following with a physician. Onset (ago): hour(s) Location: face, left and upper extremity Radiation: non-radiation Severity: moderate Related Data Home Medications ?Medication ?Instructions ?Recorded ?Confirmed ?Last Taken ?Type dexmethylphenidate 10 mg tablet 10 mg PO BID 08/29/22 04/02/23 Unknown History trazodone 100 mg tablet 100 mg PO QHS 08/29/22 04/02/23 Unknown History Adult Aspirin 324 mg PO DAILY 04/02/23 04/02/23 Unknown History atorvastatin 40 mg tablet 40 mg PO DAILY 04/02/23 04/02/23 Unknown History lisinopril 10 mg tablet 10 mg PO DAILY 04/02/23 04/02/23 Unknown History Allergies Allergy/AdvReac Type Severity Reaction Status Date / Time codeine Allergy Mild Itching Verified 09/27/24 07:19 Review of Systems 2 Review of Systems: All systems reviewed & are unremarkable except as noted in HPI and below [facility] Past Medical History Medical History Hypertension CAD (coronary artery disease) Surgical History Surgical History History of carpal tunnel surgery Stented coronary artery History of appendectomy H/O hernia repair Social History Social History Smoking status: Current every day smoker Tobacco type: cigarettes Alcohol intake: never Substance use: current Living arrangements: with family Gender identity (if verbalized by the patient): Male Exam 2 Const: General: cooperative, comfortable, no acute distress, well developed, alert, awake and Physically active HENMT: Head: normocephalic and atraumatic Ears: hearing grossly normal bilaterally Face/Nose/Sinus: Normal external nose present Mouth: Yes Normal oral and palatal mucosa present Eyes: General: appearance normal, both eyes and all related structures V isual Lopez: normal visual lopez by confrontation Alignment and Position: a lignment normal Periorbital: periorbital findings normal Eyelids: eyelids normal Neck: Neck: normal visual inspection, full ROM, no lymphadenopathy and no meningeal signs Chest: Chest palpation & inspection: normal inspection of the chest and normal palpation of entire chest wall Resp: Effort & Inspection: normal respiratory effort and able to speak in complete sentences Auscultation: clear to auscultation bilaterally Cardio: Jugular venous distension: no JVD Palpation: normal PMI Rate: r egular rate Rhythm: regular rhythm Heart sounds: S1 normal heart sound present and S2 normal heart sound present GI: Inspection: normal to inspection : General: Yes bimanual renal exam normal bilaterally Back/Spine/Pelvis: Back: no CVA tenderness Skin: General skin exam: normal color and no rashes or lesions noted Neuro: General: oriented to person, oriented to place, oriented to time, patient oriented x3 and gait normal Speech: normal speech Motor exam (neuro): Motor abnormalites present ( Left arm with some drift and left arm weakness with some left lower leg w) Sensory Exam: Sensory deficit (Neuro) Coordination: sways with eyes open Extrem: General: normal to inspection Psych: Appearance: grossly normal Course Course Emergency Course: Patient had NIH stroke scale of 6, CT scan performed shows no acute intracranial abnormality. The patient was assessed for TNK inclusion criteria and patient has no exclusions to receiving T and K. Patient had blood work performed including his PT and INR and PTT. EKG performed shows normal sinus rhythm a blood pressure of 123/97 with heart rate of 80 O2 saturation 99% on room air. His H&H is 13 and 39 respectively with white count of 5.7. CT performed shows small amount of atherosclerotic plaque with 0% stenosis of the right and left carotid bowls. Normal anatomic variation to the [place] with no hemodynamically significant stenosis thrombosis or aneurysm. Spoke to Neurology have [facility] in [place] but accepted patient for transfer. Vital Signs Vital signs: Vital Signs Temperature 36.4 C L 09/27/24 07:12 Pulse Rate 91 09/27/24 07:12 Respiratory Rate 18 09/27/24 07:12 Blood Pressure 123/97 H 09/27/24 07:12 Pulse Oximetry 97 09/27/24 07:12 Oxygen Delivery Room Air 09/27/24 07:12 Temperature 36.4 C L 09/27/24 07:12 Pulse Rate 80 09/27/24 07:25 Respiratory Rate 18 09/27/24 07:25 Blood Pressure 123/97 H 09/27/24 07:25 Pulse Oximetry 99 09/27/24 07:25 Oxygen Delivery Room Air 09/27/24 07:12 Medical Decision Making Vital Signs Vital Signs: Vital Signs Temperature 36.4 C L 09/27/24 07:12 Pulse Rate 91 09/27/24 07:12 Respiratory Rate 18 09/27/24 07:12 Blood Pressure 123/97 H 09/27/24 07:12 Pulse Oximetry 97 09/27/24 07:12 Oxygen Delivery Room Air 09/27/24 07:12 Temperature 36.4 C L 09/27/24 07:12 Pulse Rate 80 09/27/24 07:25 Respiratory Rate 18 09/27/24 07:25 Blood Pressure 123/97 H 09/27/24 07:25 Pulse Oximetry 99 09/27/24 07:25 Oxygen Delivery Room Air 09/27/24 07:12 Lab Data 09/27/24 07:29 09/27/24 07:29 Labs: Lab Results 09/27/24 09/27/24 Range/Units 07:22 07:29 WBC 5.7 (4.8-10.8) K/mm3 RBC 4.29 L (4.70-6.10) M/mm3 Hgb 13.2 L (14.0-18.0) g/dL Hct 39.3 L (40.0-54.0) % MCV 91.6 (78.0-102.0) fL MCH 30.8 (27.0-31.0) pg MCHC 33.6 (32-36) g/dL RDW 13.2 (11.6-14.4) % Plt Count 213 (150-420) K/mm3 MPV 9.8 (8.7-11.0) fl Immature Gran % (Auto) Not Reportable Neut % (Auto) Not Reportable Lymph % (Auto) Not Reportable Cross % (Auto) Not Reportable Eos % (Auto) Not Reportable Baso % (Auto) Not Reportable Lymph # (Auto) Not Reportable Cross # (Auto) Not Reportable Eos # (Auto) Not Reportable Baso # (Auto) Not Reportable Abs Immat Gran (auto) Not Reportable Absolute Neuts (auto) Not Reportable Absolute Nucleated RBC Not Reportable Total Counted 100 Neutrophils % (Manual) 64 (46-73) % Band Neutrophils % 0 (0-6) % Lymphocytes % (Manual) 16 L (18-44) % Monocytes % (Manual) 18 H (3-9) % Eosinophils % (Manual) 2 (1-6) % Nucleated RBC % Not Reportable Abs Neuts (Manual) 3.64 (1.3-6.7) K/mm3 Abs Lymphs (Manual) 0.91 L (1.1-4.5) K/mm3 Abs Monocytes (Manual) 1.02 H (0.1-0.90) K/mm3 Absolute Eos (Manual) 0.11 (0.02-0.50) K/mm3 Platelet Estimate Adequate (Adequate) Schistocytes Not Reportable PT 9.9 (9.50-12.1) Seconds INR 0.9 APTT 25.4 (23.9-30.70) Sec Sodium 136 L (137-145) mmol/L Potassium 3.8 (3.4-5.0) mmol/L Chloride 104 (98-107) mmol/L Carbon Dioxide 27 (22-30) mmol/L Anion Gap 5 (4-12) mmol/L BUN 12 (9-20) mg/dL Creatinine 0.88 (0.7-1.3) mg/dL Estim Creat Clear Calc 91 ml/min Estimated GFR > 60 (59 - ) Glucose 118 H (65-110) mg/dL POC Capillary Glucose 145 H (65-105) mg/dl Calculated Osmolality 282 L (285-295) mOsm/kg Calcium 8.7 (8.4-10.2) mg/dL Total Bilirubin 0.4 (0.2-1.3) mg/dL AST 269 H (17-59) U/L ALT 298 H (6-50) U/L Alkaline Phosphatase 81 (38-126) U/L Troponin I < 0.012 (0.000-0.034) ng/mL Total Protein 6.5 (6.3-8.2) g/dL Albumin 3.7 (3.5-5.1) g/dL Ethyl Alcohol 100 (<10) mg/dL Critical Care Time Critical Care Time Critical Care Time: No Discharge Plan Discharge Clinical Impression: Stroke Qualifiers: CVA mechanism: unspecified Qualified Code(s): I63.9 - Cerebral infarction, unspecified Patient Disposition: Acute Care Hospital Condition: Guarded Prognosis Patient Language: Khmer Prescriptions: No Action Adult Aspirin 324 mg PO DAILY atorvastatin 40 mg tablet 40 mg PO DAILY lisinopril 10 mg tablet 10 mg PO DAILY losartan 100 mg tablet 100 mg PO DAILY Qty: 30 0RF amlodipine [Norvasc] 5 mg tablet 5 mg PO DAILY Qty: 30 0RF losartan 100 mg tablet 100 mg PO DAILY Qty: 30 0RF amlodipine [Norvasc] 5 mg tablet 5 mg PO DAILY Qty: 30 0RF dexmethylphenidate 10 mg tablet 10 mg PO BID trazodone 100 mg tablet 100 mg PO QHS Follow-up/Referrals: Louis Hughes MD [Primary Care Provider] -
--- NOTE | 2024-09-27 08:26 | PC.NURSE ---
pt complaint of extreme pain to right lower jaw /tooth with abscess, throbbing pain afte tpa. dr kim notified.
[2024-09-27] MEDS: ACETAMINOPHEN 500 MG TABLET 1000 MG PO (08:38)
[2024-09-27] MEDS: SODIUM CHLORIDE 0.9% IV 1,000 ML 999 ML IV CONT (08:38)
== END 2024-09-27 11:06 | disposition short-term general hospital (02) ==
PROVIDERS: Emergency Provider Emergency Medicine; Referring Provider Family Medicine
DX: I63.9 Cerebral infarction, unspecified (principal); I10 Essential (primary) hypertension; E78.5 Hyperlipidemia, unspecified; I25.10 Atherosclerotic heart disease of native coronary artery without angina pectoris; F17.210 Nicotine dependence, cigarettes, uncomplicated; Z86.73 Personal history of transient ischemic attack (TIA), and cerebral infarction without residual deficits
CPT/HCPCS: 36415; 70450; 70496; 70498; 80053; 82077; 82948; 84484; 85025; 85610; 85730; 93005; 96361; 96374; 99285; A9270; J3101; J7030; Q9967

== ENCOUNTER 2024-10-05 15:38 | Emergency (ER) | payer BC, SELFPAY ==
[2024-10-05] VITALS (45 sets, daily range): BP systolic 85–143; BP diastolic 56–92; PULSE 70–98; RESP 16–18; TEMP 36.8; O2SAT 92–98
--- NOTE | ~2024-10-05 | CT_ITS ---
CTA brain carotid Ordering provider: Karri Chase MD History: . Lt. side headache/facial drooping/numbness, general weakness . Comparison: None. Technique: CT angiogram head and neck was performed following timed intravenous injection of contrast . Thin slice axial images and reformatted coronal images were obtained. Three dimensional reformatted images of the brain were also obtained using a [employer] workstation. FINDINGS: HEAD: --ANTERIOR AND MIDDLE CEREBRAL ARTERIES AND BRANCHES: Normal caliber and contour. --INTERNAL CAROTID ARTERIES: Mild atheromatous disease but no significant stenosis. No occlusion. --BASILAR ARTERY AND BRANCHES: Formed by the right vertebral artery in the area of the. Normal calibe r and contour. No atheromatous disease. --POSTERIOR CEREBRAL ARTERIES: Normal caliber and contour --POSTERIOR COMMUNICATING ARTERIES: Bilateral visualized and continues as posterior cerebral arteries . --ANEURYSM: None visualized. --BRAIN: Please refer to report of CT head performed the same day. --BONES AND SUPERFICIAL SOFT TISSUES: Please refer to report of CT head performed the same day. --PARANASAL SINUSES AND MASTOIDS: Please refer to report of CT head done the same day. NECK: --RIGHT CERVICAL CAROTID SYSTEM: Mild atheromatous disease of the carotid bulb and proximal internal carotid artery without significant stenosis. Percent stenosis per NASCET criteria is 0%. No carotid dissection. Otherwise, no significant atheromatous disease or stenosis of the cervical carotid system . --LEFT CERVICAL CAROTID SYSTEM: Mild atheromatous disease of the carotid bulb and proximal internal c arotid artery without significant stenosis. Percent stenosis per NASCET criteria is 0%. No carotid d issection. Otherwise, no significant atheromatous disease or stenosis of the cervical carotid system. --VERTEBRAL ARTERIES: Right is of normal caliber and contour. The left is smaller in caliber. --VISUALIZED AORTIC ARCH AND BRANCHING VESSELS: Mild atheromatous disease but no significant stenosis . --SOFT TISSUES: Normal. --CERVICAL SPINE: Age appropriate degenerative changes. IMPRESSION: 1. Normal CTA head. 2. Posterior communicating arteries continue as the posterior cerebral arteries. 3. The vertebral arteries performed by the right vertebral artery. 4. CTA neck. Percent stenosis per NASCET criteria is is 0%. Atherosclerotic changes seen bilaterall y. Reviewed, dictated and finalized at location A. IMPRESSION: 1. Normal CTA head. 2. Posterior communicating arteries continue as the posterior cerebral arterie s. 3. The vertebral arteries performed by the right vertebral artery. 4. CTA neck. Percent stenosis per NASCET criteria is is 0%. Atherosclerotic c hanges seen bilaterally.
--- NOTE | ~2024-10-05 | CT_ITS ---
CT brain wo con Ordering provider: Karri Chase MD History: 49 years Male with . Lt. side headache/facial drooping/numbness, weakness x1 week . Comparison: October 02, 2024 Technique: CT of the head without contrast. Radiation reduction technique utilized. The dose-length p roduct was 681 mGy-cm. FINDINGS: BRAIN PARENCHYMA AND CSF SPACES: Mild leukoaraiosis and diffuse cortical atrophy. Mild atheromatous d isease. No midline shift, mass effect or hemorrhage. The brain parenchyma and CSF spaces are otherwi se normal. VISUALIZED PARANASAL SINUSES: Right ethmoid sinus disease. Otherwise, Well aerated. MASTOIDS: Well aerated. BONES: The bones appear intact. SOFT TISSUES: Visualized nasopharynx is normal. Superficial soft tissues are normal. IMPRESSION: No acute intracranial findings. Reviewed, dictated and finalized at location A.
--- NOTE | ~2024-10-05 | XR_ITS ---
XR chest 1V portable Ordering provider: Karri Chase MD History: 49 years Male with . Lt. side headache/facial drooping/numbness, weakness x1 week . Comparison: April 02, 2023 FINDINGS: MEDIASTINUM: The cardiac silhouette is not enlarged. LUNGS: No infiltrates, effusions or pneumothorax. OTHER: No free air under the diaphragm. Degenerative changes of the spine. IMPRESSION: No acute cardiopulmonary pathology Reviewed, dictated and finalized at location A.
--- NOTE | 2024-10-05 15:47 | ED_ITS ---
HPI - Neuro Symptoms/Deficit General Chief Complaint: Suspected CVA Stated Complaint: numbness to left face and left arm Time Seen by Provider: 10/05/24 15:45 Source: patient and family Mode of arrival: ambulatory Limitations: no limitations History of Present Illness HPI Narrative: Patient is a 49-year-old male with CVA 2022 having recurrent CVA like changes over the past year. He is here with unclear time frame having left facial numbness and left arm weakness today. He did not wake with the symptoms but he started them sometime this morning per the history. He did get TNK in the past 2 weeks. Patient was in [facility] and discharged a week ago for suspect CVA however MRI was negative for acute changes. He was discharged in 1 day. Patient has been having these same symptoms however for the past year. Symptoms are typically on and off however they were more significant today according to the family and patient. Patient has been sober of alcohol for 2 months. He calls these episodes and they happen on and off. He also has chronic tremors. Onset (ago): day(s) ( One however in reality his complaint has been over a year of similar episodes and today multiple time frames have been given but all of them were out of the time frame for TNK and he recently had T and K) Timing confirmed by: spouse and family member Location: speech, left face, dysarthria, left arm and ataxia History of same: Yes Severity: moderate Quality: weak, numb, tingling and intermittent Relieving factors: none Exacerbating factors: none Context: other ( patient has recurrent neurological symptoms focally on and off over the past year but more significant today and unclear time frame when it started but definitely more than 4 hours and recent TNK given 2 weeks ago) Associated symptoms: denies other symptoms Treatments Prior to Arrival: none Related Data Home Medications ?Medication ?Instructions ?Recorded ?Confirmed ?Last Taken ?Type dexmethylphenidate 10 mg tablet 10 mg PO BID 08/29/22 04/02/23 Unknown History trazodone 100 mg tablet 100 mg PO QHS 08/29/22 04/02/23 Unknown History Adult Aspirin 324 mg PO DAILY 04/02/23 04/02/23 Unknown History atorvastatin 40 mg tablet 40 mg PO DAILY 04/02/23 04/02/23 Unknown History lisinopril 10 mg tablet 10 mg PO DAILY 04/02/23 04/02/23 Unknown History Allergies Allergy/AdvReac Type Severity Reaction Status Date / Time codeine Allergy Mild Itching Verified 10/05/24 15:59 Review of Systems 2 Review of Systems: All systems reviewed & are unremarkable except as noted in HPI and below Constitutional: Constitutional: Reports no additional constitutional complaints Eyes: Eyes: Reports no additional eye complaints ENT: Reports system reviewed and no additional complaints, except as documented Cardiovascular: Cardiovascular: Reports no additional cardiovascular complaints Respiratory: Respiratory: Reports no additional respiratory complaints Gastrointestinal: Gastrointestinal: Reports no additional gastrointestinal complaints Genitourinary: Genitourinary: Reports no additional male genitourinary complaints Musculoskeletal: Musculoskeletal: Reports no additional musculoskeletal complaints Integumentary/Breasts: Skin/Breast: Reports system reviewed and no additional complaints, except as docu Neurologic: Reports system reviewed and no additional complaints, except as documented Psychiatric: Psychiatric: Reports no additional psychiatric complaints Endocrine: Endocrine: Reports no additional endocrine complaints Hematologic/Lymphatic: Hematologic/Lymphatic: Reports no additional hematologic/lymphatic complaints Allergic/Immunologic: Allergic/Immunologic: Reports no additional allergic/immunologic complaints PMFSH Past Medical History Medical History Hypertension CAD (coronary artery disease) Surgical History Surgical History History of carpal tunnel surgery Stented coronary artery History of appendectomy H/O hernia repair Social History Social History Smoking status: Current every day smoker Tobacco type: cigarettes Alcohol intake: never Substance use: current Living arrangements: with family Gender identity (if verbalized by the patient): Male Exam 2 Const: General: healthy appearing Nutritional Appearance: well nourished Orientation/consciousness: patient oriented x3 Limitations: no limitations Other: patient possibly appeared intoxicated on presentation as he was very loud and nurses were noting his irregular behavior such as sexual advancements at times; he seems in different to the complaints at times HENMT: Head: normal to inspection Ears: external ears normal F gilda/Nose/Sinus: Normal external nose present Eyes: Conjunctivae: conjunctivae normal Pupils: Equal, round and reactive pupils present EOM: EOMs intact bilaterally Neck: Neck: normal visual inspection Chest: Chest palpation & inspection: normal inspection of the chest Resp: Effort & Inspection: normal respiratory effort and not labored A uscultation: clear to auscultation bilaterally and no crackles Cardio: Rate: regular rate Rhythm: regular rhythm Heart sounds: no murmurs GI: Inspection: non-distended GI Palp: Yes Soft to palpation and No Tenderness to palpation present (GI) Auscultation: normal bowel sounds : General: Yes bladder normal to palpation Back/Spine/Pelvis: Back: no CVA tenderness Skin: General skin exam: normal color Rashes: no rashes Wounds: no wounds Neuro: General: patient oriented x3, moves all extremities, no meningeal signs, No no focal motor deficits and No CN's II-XI intact bilaterally C ranial nerves: Yes Nystagmus not present Speech: No normal speech Gait exam (Neuro): gait abnormal Other: fast exam is positive at times but then back to normal at times with variable neurological focal changes, it appears the patient also forces some of the neurological changes on examination, GCS is 15 , NIH score is 2 based on gait abnormality on presentation and occasional slurred speech, repeat NIH scores are hard to assess as he has sensory complaints on and off but his motor weakness is not appreciated on exam except when he appears to make the face asymmetry and it disappears quickly Extrem: General: normal to inspection Psych: Mental Status: mental status grossly normal Affect: normal affect Attitude: cooperative Course Vital Signs Vital signs: Vital Signs Temperature 36.8 C 10/05/24 15:38 Pulse Rate 97 10/05/24 15:38 Respiratory Rate 16 10/05/24 15:38 Blood Pressure 102/68 10/05/24 15:38 Pulse Oximetry 93 10/05/24 15:38 Oxygen Delivery Room Air 10/05/24 15:38 Temperature 36.8 C 10/05/24 15:38 Pulse Rate 74 10/05/24 20:00 Respiratory Rate 16 10/05/24 20:00 Blood Pressure 96/64 L 10/05/24 20:00 Pulse Oximetry 94 10/05/24 20:00 Oxygen Delivery Room Air 10/05/24 15:38 MDM - Neuro Symptoms/Deficit MDM Narrative Medical decision making narrative: patient is a 49-year-old male with focal neurological changes which could correlate with CVA however unknown time frame and recent TNK given 2 weeks ago. We will do neurological workup at this time. He is not a candidate for thrombolytics at this time due to time frame unknown and recent use of thrombolytics. There also is a possibility of psychological component to these complaints. patient continues to explain that he is not been drinking alcohol however his alcohol level is 291. His significant other feels that he has not drank alcohol in 60 days per his history to her about his alcohol use. He is also having tremors, shuffling gait and small writing which all may point towards Parkinson's disease as a outpatient further workup. The acute problem that keeps reoccurring, could be related to alcohol especially having gait abnormality. Patient does have a history of alcohol withdrawal which does need to be monitored at next facility. [facility] is [facility] the transfer for CVA workup. Higher level medical care. Lab Data Attestation: I reviewed the patient's lab results. 10/05/24 16:10 10/05/24 16:10 Labs: Lab Results 10/05/24 Range/Units 16:10 WBC 6.5 (4.8-10.8) K/mm3 RBC 4.72 (4.70-6.10) M/mm3 Hgb 14.5 (14.0-18.0) g/dL Hct 42.1 (40.0-54.0) % MCV 89.2 (78.0-102.0) fL MCH 30.7 (27.0-31.0) pg MCHC 34.4 (32-36) g/dL RDW 12.8 (11.6-14.4) % Plt Count 364 (150-420) K/mm3 MPV 9.3 (8.7-11.0) fl Immature Gran % (Auto) 0.3 H (0.0-0.0) % Neut % (Auto) 55.7 (50.0-70.0) % Lymph % (Auto) 32.1 (18.0-42.0) % [place] % (Auto) 9.7 (2.0-11.0) % Eos % (Auto) 1.4 (1.0-6.0) % Baso % (Auto) 0.8 (0.0-1.0) % Lymph # (Auto) 2.09 (1.10-4.50) K/mm3 [place] # (Auto) 0.63 (0.10-0.90) K/mm3 Eos # (Auto) 0.09 (0.02-0.50) K/mm3 Baso # (Auto) 0.05 (0.00-0.10) K/mm3 Abs Immat Gran (auto) 0.02 H (0.00-0.00) K/mm3 Absolute Neuts (auto) 3.63 (1.70-7.20) K/mm3 Absolute Nucleated RBC 0.00 (0.00-0.00) K/mm3 Nucleated RBC % 0.0 (0-0.0) % PT 9.8 (9.50-12.1) Seconds INR 0.9 APTT 26.7 (23.9-30.70) Sec Sodium 138 (137-145) mmol/L Potassium 4.3 (3.4-5.0) mmol/L Chloride 106 (98-107) mmol/L Carbon Dioxide 28 (22-30) mmol/L Anion Gap 4 (4-12) mmol/L BUN 15 (9-20) mg/dL Creatinine 1.11 (0.7-1.3) mg/dL Estim Creat Clear Calc 73 ml/min Estimated GFR > 60 (59 - ) Glucose 92 (65-110) mg/dL Calculated Osmolality 286 (285-295) mOsm/kg Calcium 8.3 L (8.4-10.2) mg/dL Total Bilirubin 0.3 (0.2-1.3) mg/dL AST 120 H (17-59) U/L ALT 138 H (6-50) U/L Alkaline Phosphatase 84 (38-126) U/L Troponin I < 0.012 (0.000-0.034) ng/mL Total Protein 6.8 (6.3-8.2) g/dL Albumin 3.8 (3.5-5.1) g/dL Ethyl Alcohol 291 (<10) mg/dL Imaging Data Attestation: I personally reviewed and interpreted this imaging study as follows: Radiologist's impression: Chest x-ray is negative for acute process CT scan of the brain is negative for acute process CTA head and neck were negative for acute process ECG Data EKG #1: Attestation: I personally reviewed and interpreted this ECG as follows: ECG completion date: 10/05/24 ECG completion time: 16:17 EKG Interpretation: normal rate, sinus rhythm, no ectopy, no ST changes, normal QRS, normal QT and NL axis Discharge Plan Discharge Clinical Impression: Acute CVA (cerebrovascular accident) Patient Disposition: Acute Care Hospital Condition: Stable Patient Language: [place] Prescriptions: No Action Adult Aspirin 324 mg PO DAILY atorvastatin 40 mg tablet 40 mg PO DAILY lisinopril 10 mg tablet 10 mg PO DAILY losartan 100 mg tablet 100 mg PO DAILY Qty: 30 0RF amlodipine [Norvasc] 5 mg tablet 5 mg PO DAILY Qty: 30 0RF losartan 100 mg tablet 100 mg PO DAILY Qty: 30 0RF amlodipine [Norvasc] 5 mg tablet 5 mg PO DAILY Qty: 30 0RF dexmethylphenidate 10 mg tablet 10 mg PO BID trazodone 100 mg tablet 100 mg PO QHS Follow-up/Referrals: Dionicio Barriga MD [Physician] - Time of Disposition: 20:25
--- NOTE | 2024-10-05 15:58 | ECG_ITS ---
Test Date: 2024-10-05 16:07:09 Measurements Intervals [place] Rate: 89 P: 20 IL: 155 QRS: 10 QRSD: 87 T: 3 QT: 362 QTc: 440 Interpretive Statements SINUS RHYTHM PROBABLE INFERIOR MYOCARDIAL INFARCTION , PROBABLY OLD [35 ms Q WAVE IN II/aVF]WITH ABNORMAL ECG Compared to ECG 09/27/2024 07:52:17 Myocardial infarct finding now present Electronically Signed On 10-06-2024 09:54:44 CDT by Abrahan Schulz M.D.
--- NOTE | 2024-10-05 15:59 | PC.NURSE ---
Gait impaired possibly related to ETOH, ERP is aware and patient is to be tested. Smell of ETOH on patient's breath is pungent.
[2024-10-05 16:15] LABS: Hematocrit 42.1 % (40.0-54.0); Hemoglobin 14.5 g/dL (14.0-18.0); Immature Granulocyte Percent A 0.3 % (0.0-0.0); Lymphocytes Absolute Auto 2.09 K/mm3 (1.10-4.50); Mean Corpuscular HGB Conc 34.4 g/dL (32-36); Mean Corpuscular Hemoglobin 30.7 pg (27.0-31.0); Mean Corpuscular Volume 89.2 fL (78.0-102.0); Nucleated Red Blood Cells Absolute Auto 0.00 K/mm3 (0.00-0.00); Nucleated Red Blood Cells Perc 0.0 % (0-0.0); Platelet Count Result 364 K/mm3 (150-420); Red Blood Count 4.72 M/mm3 (4.70-6.10); White Blood Count 6.5 K/mm3 (4.8-10.8)
[2024-10-05 16:30] LABS: INR 0.9; Partial Thromboplastin Time 26.7 Sec (23.9-30.70); Prothrombin Time 9.8 Seconds (9.50-12.1)
[2024-10-05 16:45] LABS: Alanine Aminotransferase 138 U/L (6-50); Anion Gap 4 mmol/L (4-12); Aspartate Amino Transferase 120 U/L (17-59); Bilirubin,Total 0.3 mg/dL (0.2-1.3); Blood Urea Nitrogen 15 mg/dL (9-20); Calcium 8.3 mg/dL (8.4-10.2); Carbon Dioxide 28 mmol/L (22-30); Chloride 106 mmol/L (98-107); Estimated CRCL calculation 73 ml/min; Estimated Glomerular Filt Rate > 60; Glucose 92 mg/dL (65-110); Osmolality Calculated 286 mOsm/kg (285-295); Potassium 4.3 mmol/L (3.4-5.0); Sodium 138 mmol/L (137-145)
[2024-10-05 16:46] LABS: Albumin Level 3.8 g/dL (3.5-5.1); Alkaline Phosphatase 84 U/L (38-126); Total Protein 6.8 g/dL (6.3-8.2); Troponin I < 0.012 ng/mL (0.000-0.034)
--- NOTE | 2024-10-05 16:46 | PC.NURSE ---
Patient being taken down to radiology
--- NOTE | 2024-10-05 17:10 | PC.NURSE ---
Patient reports that his face is drooping more, RN went into patient's room and when patient smiles smile is equal and then droop resolves.
--- NOTE | 2024-10-05 18:55 | PC.NURSE ---
ASSUMED CARE FROM ANUP CORREA. PATIENT CURRENTLY RESTING ON HIS LEFT SIDE. CALL LIGHT IN REACH. DENIES ANY NEEDS.
--- NOTE | 2024-10-05 19:17 | PC.NURSE ---
SPOKE WITH ACE IN RADIOLOGY. HE REPORTS THAT THE RADIOLOGIST IS READING HEAD CTA AT THIS TIME. SHOULD HAVE RESULTS SOON.
--- NOTE | 2024-10-05 20:18 | PC.NURSE ---
DR LITTLE AT THE BEDSIDE UPDATING PATIENT AND
--- NOTE | 2024-10-05 20:20 | PC.NURSE ---
ASKED ACE FROM RADIOLOGY TO MAKE DISK AND PUSH FILMS TO [facility]
[2024-10-05] MEDS: ASPIRIN 325 MG ENTERIC TABLET PO (20:34)
--- NOTE | 2024-10-05 20:35 | PC.NURSE ---
SIGNED CONSENT FORM FOR TRANSFER. PATIENT REQUESTED FOOD TO EAT. OK PER DR LITTLE. SANDWICH, CHIPS AND PEPSI GIVEN. AT THE BEDSIDE
--- NOTE | 2024-10-05 20:51 | PC.NURSE ---
PATIENT HAS FINISHED EATING, RESTING ON STRETCHER. AT HIS SIDE.
[2024-10-05 23:09] LABS: Add Urine Microscopic? NO; Appearance Urine Clear (Clear); Glucose Urine UA Negative (Negative); Leukocyte Esterase Ur Negative LEU/UL (Negative); Nitrate Urine Negative (Negative); Specific Grav Ur <= 1.005 (1.010-1.020)
[2024-10-05 23:25] LABS: Cannabinoid Screen Urine Negative (Negative)
== END 2024-10-05 22:26 | disposition short-term general hospital (02) ==
PROVIDERS: Emergency Provider Emergency Medicine; Referring Provider Internal Medicine
DX: I63.9 Cerebral infarction, unspecified (principal); I25.10 Atherosclerotic heart disease of native coronary artery without angina pectoris; I10 Essential (primary) hypertension; F17.210 Nicotine dependence, cigarettes, uncomplicated; Z86.73 Personal history of transient ischemic attack (TIA), and cerebral infarction without residual deficits
CPT/HCPCS: 36415; 70450; 70496; 70498; 71045; 80053; 80307; 81003; 82077; 84484; 85025; 85610; 85730; 93005; 99284; 99285; A9270; Q9967